=== PATIENT | male | born 1945 | race American Indian/Alaskan Native ===

== ENCOUNTER 2017-06-16 17:32 | Emergency (ER) | payer MEDICARE ==
--- NOTE | 2017-06-16 21:09 | XRay Report ---
FINAL REPORT EXAM: XR HIP 2-3V LT HISTORY: LEFT HIP PAIN TECHNIQUE: AP pelvis and 4 views left hip were performed Comparison: None FINDINGS: There has been previous intramedullary jonathon placement for left proximal femur fracture. The bones are osteopenic. There is an oblique lucency through the proximal femoral shaft presumably related to previous fracture. Hree fracture through this region cannot be excluded. There is a medial butterfly fragment which appears to be callused. The hardware is intact. There is distal screw in the medullary jonathon. There are surgical chanelle in the left knee. There is no definite femoral neck fracture. The sacral arches and SI joints are obscured by the bowel gas and stool. Patient is slightly rotated. There is limited assessment of the acetabular roof, seen on 1 image only which is incomplete. There is a right lower quadrant ostomy. IMPRESSION: No priors for comparison. Global osteopenia. Left femoral intramedullary jonathon for previous proximal femoral shaft fracture. No hardware failure identified. Lucency through the proximal femoral shaft presumably related to previous fracture line. If there is a clinical question, recommend CT for assessment. Limited assessment of the acetabular roof due positioning. No definite disruption of the bony pelvic ring, again limited assessment due to the bowel gas an osteopenia. The sacrum is nearly completely obscured.
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
[2017-06-17] MEDS ORDERED: PERCOCET 5/325 ONE (06:09)
--- NOTE | 2017-06-17 06:16 | XRay Report ---
FINAL REPORT PROCEDURE: XRAY LUMBAR LIMITED TECHNIQUE: Lumbar spine radiographs, including AP, lateral, and lumbosacral spot views. CPT 95789 HISTORY: LOWER BACK PAIN COMPARISON: No prior studies are available for comparison. FINDINGS: Alignment: There is a significant right convex lower thoracic upper lumbar scoliosis.. Vertebral body heights/Disk spaces: Mild spur formation off the vertebral bodies is identified at all levels.. Fracture(s): None. Facets: Normal. Bone mineralization: Normal. IMPRESSION: Significant right convex lower thoracic upper lumbar scoliosis. Moderate arthritis..
[2017-06-17] MEDS ORDERED: PERCOCET 5/325 PO ONE (06:25)
[2017-06-17 09:35] VITALS: BP 131/76
== END 2017-06-17 11:11 | disposition home or self-care (01) ==
LOC: ED 17:32
DX: M54.32 Sciatica, left side (principal); I10 Essential (primary) hypertension; I50.9 Heart failure, unspecified; E05.90 Thyrotoxicosis, unspecified without thyrotoxic crisis or storm; J44.9 Chronic obstructive pulmonary disease, unspecified; Z88.8 Allergy status to other drugs, medicaments and biological substances; F12.10 Cannabis abuse, uncomplicated; W05.1XXA Fall from non-moving nonmotorized scooter, initial encounter; Y93.89 Activity, other specified; Y92.89 Other specified places as the place of occurrence of the external cause; Y99.8 Other external cause status
CPT/HCPCS: 72100; 99284